=== PATIENT | female | born 1970 ===

== ENCOUNTER 2019-11-12 16:45 | Emergency (ER) | payer SELFPAY ==
[2019-11-12 18:38] VITALS: BP 125/97
--- NOTE | 2019-11-12 18:51 | UC ---
FLU HPI - HPI Summary HPI Summary: 49 yo Chase leonardo who has been off work since 11/04/19 with fever, rigors, nausea, malaise, assumed flu. She needs clearance prior to return to work. No fever for the past 3 days and has not had anti-pyretics. - History of Current Complaint Chief Complaint: UCGeneralIllness Stated Complaint: NEEDS FLU CLEARANCE Time Seen by Provider: 11/12/19 18:44 Hx Obtained From: Patient Onset/Duration: Sudden Onset, Lasting Days Severity Currently: None Severity Initially: Moderate Pain Intensity: 0 Associated Signs & Symptoms: Positive: Fever, Myalgia, Sore Throat Related Hx: Possible Flu/Infectious Exposure - Allergy/Home Medications Allergies/Adverse Reactions: Allergies Allergy/AdvReac Type Severity Reaction Status Date / Time No Known Allergies Allergy Verified 11/12/19 18:37 Home Medications: Home Medications NK [No Home Medications Reported] 11/12/19 [History Confirmed 11/12/19] PMH/Surg Hx/FS Hx/Imm Hx Previously Healthy: Yes - Surgical History Surgery Procedure, Year, and Place: hiatal hernia. c section - Family History Known Family History: Positive: Cardiac Disease - father, Hypertension - mother - Social History Occupation: Employed Full-time Lives: With Family Alcohol Use: Occasionally Substance Use Type: None Smoking Status (MU): Heavy Every Day Tobacco Smoker Review of Systems All Other Systems Reviewed And Are Negative: Yes Constitutional: Positive: Negative Skin: Positive: Negative Eyes: Positive: Negative Respiratory: Positive: Negative, Cough - minimal, now resolved Cardiovascular: Positive: Negative Gastrointestinal: Positive: Negative Genitourinary: Positive: Negative Motor: Positive: Negative Neurovascular: Positive: Negative Musculoskeletal: Positive: Negative Neurological/Mental Status: Positive: Negative Psychological: Positive: Negative Is Patient Immunocompromised?: No Physical Exam Triage Information Reviewed: Yes Appearance: Well-Appearing, No Pain Distress, Thin Vital Signs: Initial Vital Signs Temp 98.2 F 11/12/19 18:33 Pulse 106 11/12/19 18:33 Resp 16 11/12/19 18:33 BP 125/97 11/12/19 18:33 Pulse Ox 98 11/12/19 18:33 ENT Exam: Normal ENT: Positive: Pharynx normal Dental Exam: Normal Neck: Positive: Supple, Nontender, No Lymphadenopathy Respiratory: Positive: Lungs clear, Normal breath sounds Cardiovascular: Positive: RRR, No Murmur Musculoskeletal Exam: Normal Neurological Exam: Normal Psychological Exam: Normal Skin Exam: Normal Flu Course/Dx - Course Course Of Treatment: release for work, has no residual symptoms or cough. - Differential Dx/Diagnosis Differential Diagnosis/HQI/PQRI: Influenza Provider Diagnosis: Influenza Discharge ED - Sign-Out/Discharge Documenting (check all that apply): Patient Departure All imaging exams completed and their final reports reviewed: No Studies - Discharge Plan Condition: Good Disposition: HOME Patient Education Materials: Influenza (ED) Forms: *Work Release Referrals: No Primary Care Phys,NOPCP [Primary Care Provider] - Additional Instructions: At this time, you are free to return to work as your symptoms are resolved and you have no residual fever or cough. - Billing Disposition and Condition Condition: GOOD Disposition: Home
== END 2019-11-12 19:09 | disposition home or self-care (01) ==
LOC: UCEAST 16:45
DX: J11.1 Influenza due to unidentified influenza virus with other respiratory manifestations (principal); F17.200 Nicotine dependence, unspecified, uncomplicated
CPT/HCPCS: 99201; G0463